=== PATIENT | female | born 1940 | race Caucasian/White ===

== ENCOUNTER 2019-01-15 09:01 | Outpatient (CLI) | payer MEDICARE ==
[~2019-01-15 09:01] MED LIST: Gadobenate Dimeglumine 529 MG/1 ML (20ML VIAL) ONE
--- NOTE | 2019-01-15 13:21 | MRI ---
MRI BRAIN WITH AND WITHOUT CONTRAST: HISTORY: Polyneuropathy. Loss of balance and memory. COMPARISON: None. FINDINGS: No evidence of hemorrhage on the axial gradient echo sequence. The calvarium has a normal T1 marrow signal intensity. Midline brain parenchymal structures are unre markable. No parenchymal mass, mass effect, or midline shift. Brain volume is age appropriate. Cortical villasenor white matter differentiation is preserved. Ventricles and sulci are patent and symmetric. T2 and FLAIR white matter hyperintensities due to chronic small vessel ischemic change. Central arterial flow voids are maintained. Absent restricted diffusion. There is left maxillary sinus mucosal disease, along with partial opacification of the bilateral ethm oid air cells. Adequate mastoid air cell aeration. There is no pathologic enhancement of the brain parenchyma. 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 IMPRESSION: 1. No acute intracranial process. 2. Chronic small vessel ischemic changes of the white matter. 3. 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 4. Absent restricted diffusion. No acute infarct. No pathologic enhancement of the brain parenchym a. POS: [facility]
== END 2019-01-15 09:02 | disposition home or self-care (01) ==
LOC: SCSMRI 09:01
PROVIDERS: ATTEND Psychiatry & Neurology Neurology
DX: R27.0 Ataxia, unspecified (principal)
CPT/HCPCS: 70553; 82565; A9577